=== PATIENT | male | born 1970 | race African-American/Black ===

== ENCOUNTER 2019-02-11 06:00 | Emergency (ER) | payer MEDICAID, OTHER ==
[~2019-02-11] VITALS: Ht 185.4 cm; Wt 91.8 kg
[~2019-02-11 06:00] MED LIST: GABA600T PO; [UNRECOGNIZED DRUG - REMARK]
[2019-02-11] MEDS ORDERED: GABA250S2 PO (06:24)
[2019-02-11] MEDS ORDERED: PANT20TA12 PO (06:24)
[2019-02-11] MEDS ORDERED: LISI-622 PO (06:24)
[2019-02-11 09:10] VITALS: BP 139/89
[2019-02-11] MEDS ORDERED: IBUPROFEN 800 MG TABLET PO ONE (09:15)
== END 2019-02-11 09:40 | disposition home or self-care (01) ==
LOC: EMS 06:02
DX: S93.402A Sprain of unspecified ligament of left ankle, initial encounter (principal); I10 Essential (primary) hypertension; Z79.899 Other long term (current) drug therapy; X50.0XXA Overexertion from strenuous movement or load, initial encounter; Y93.89 Activity, other specified; Y92.89 Other specified places as the place of occurrence of the external cause; Y99.8 Other external cause status

== ENCOUNTER 2021-09-18 16:26 | Emergency (ER) | payer MEDICAID ==
[~2021-09-18] VITALS: Ht 185.4 cm; Wt 93.2 kg
[~2021-09-18 16:26] MED LIST changes: +GABA250S2 PO; +LISI5TAB21 PO; +PANT20TA18 PO
[2021-09-18 17:47] LABS: COVID AG,FIA SOURCE NASAL SWAB
[2021-09-18 18:48] VITALS: BP 119/66
== END 2021-09-18 18:50 | disposition home or self-care (01) ==
LOC: EMS 16:28
DX: U07.1 COVID-19 (principal); I10 Essential (primary) hypertension; G62.9 Polyneuropathy, unspecified; Z98.890 Other specified postprocedural states
CPT/HCPCS: 99283